=== PATIENT | male | born 1975 | race American Indian/Alaskan Native ===

== ENCOUNTER → 2017-02-10 | Outpatient (CLI) | payer OTHER | LOC: SLEEPLAB 09:38 | DX: G47.33 Obstructive sleep apnea (adult) (pediatric) (principal) ==

== ENCOUNTER → 2017-03-13 | Outpatient (CLI) | payer OTHER | LOC: RAD 11:14 | DX: M17.12 Unilateral primary osteoarthritis, left knee (principal); M25.512 Pain in left shoulder ==